=== PATIENT | female | born 1985 | race African-American/Black ===

== ENCOUNTER 2019-08-29 00:44 | Emergency (ER) | payer OTHER, MEDICAID ==
[~2019-08-29] VITALS: Ht 185.4 cm; Wt 127.0 kg
[2019-08-29 01:20] LABS: HEMATOCRIT 48.8 % (37.0-47.0); HEMOGLOBIN 16.3 gm/dL (12.0-15.0); MCH 30.2 pg (26.0-34.0); MCHC 33.3 g/dL (28.0-37.0); MCV 90.6 fL (80.0-100.0); MPV 6.5 fl. (7.2-11.1); RBC 5.39 mil/uL (4.20-5.00); RDW-CV 13.7 % (10.5-14.5); WBC 7.2 thou/uL (4.0-11.0)
[2019-08-29 01:31] LABS: CALCIUM 9.2 mg/dL (8.5-10.1); CREATININE 0.9 mg/dL (0.6-1.3); POTASSIUM 3.7 mmol/L (3.5-5.1)
[2019-08-29 01:36] LABS: TOTAL BILIRUBIN 0.7 mg/dL (<0.1-1.0)
[2019-08-29 01:49] LABS: SALICYLATE 3.7 mg/dL (2.8-20.0)
[2019-08-29 01:54] LABS: URINE BILIRUBIN 1+ (Negative); URINE BLOOD NEGATIVE (Negative); URINE CLARITY CLOUDY; URINE COLOR DARK YELLOW; URINE GLUCOSE-RANDOM NEGATIVE (Negative); URINE KETONES TRACE (Negative); URINE LEUKOCYTES TRACE (Negative); URINE NITRITE NEGATIVE (Negative); URINE PROTEIN NEGATIVE (Negative); URINE SPECIFIC GRAVITY >= 1.030 (1.005-1.030)
[2019-08-29 01:57] LABS: ICTOTEST (BILI CONFIRMATORY) Negative (Negative)
[2019-08-29 02:00] LABS: SQUAMOUS 4-10 Moderate /LPF (0-3)
[2019-08-29 02:02] LABS: CASTS None Seen /LPF (None Seen); CRYSTALS None Seen /LPF (None Seen); MUCUS 4-6 Moderate strn/LPF (None Seen); URINE RBC 3-10 Few /HPF (0-2); URINE WBC 6-15 Few /HPF (0-5)
[2019-08-29 02:03] LABS: ACETAMINOPHEN < 2 ug/mL (10-30); ALCOHOL < 10 mg/dL (<10)
[2019-08-29 02:51] LABS: AMP/METHAMP POSITIVE (Negative); BARBITURATES Negative (Negative); BENZODIAZEPINES Negative (Negative); COCAINE Negative (Negative); METHADONE Negative (Negative); OPIATES Negative (Negative); PCP POSITIVE (Negative); THC POSITIVE (Negative)
[2019-08-29 13:13] VITALS: BP 101/56
== END 2019-08-29 13:13 ==
LOC: M.ERS 00:44
PROVIDERS: Personal Emergency Response Attendant
DX: R45.851 Suicidal ideations (principal); Z88.0 Allergy status to penicillin; Z91.018 Allergy to other foods